=== PATIENT | female | born 1980 | race Caucasian/White ===

== ENCOUNTER → 2019-01-04 15:56 | Outpatient (CLI) | payer OTHER, SELFPAY ==
--- NOTE | 2019-01-04 15:59 | DI.RAD.S_ITS ---
PROCEDURE: XR FOOT LT MIN 3V INDICATIONS: Left pinky toe injury TECHNIQUE: 3 views of the foot were acquired. COMPARISON: None. FINDINGS: Bones: Cortical irregularity along the medial aspect of the diaphysis of the left fifth middle phalanx. No suspicious bony lesions. There is a 0.5 cm rounded enostosis of the proximal diaphysis of the fifth metatarsal. Soft tissues: No tibiotalar joint effusion. IMPRESSION: Cortical irregularity of the left fifth middle phalanx, which may represent a nondisplaced fracture in the appropriate clinical setting versus a developmental variant. Correlation with point tenderness recommended to exclude acute fracture. Consider followup radiographs in 7-10 days if there is continued clinical concern. Dictated by: Aakash Warner M.D. on 01/04/2019 at 17:04 Approved by: Aakash Warner M.D. on 01/04/2019 at 17:08
== END ==
PROVIDERS: Visit Provider Physician Assistant
DX: M79.675 Pain in left toe(s) (principal); S99.922A Unspecified injury of left foot, initial encounter; X58.XXXA Exposure to other specified factors, initial encounter
CPT/HCPCS: 73630

== ENCOUNTER → 2019-07-16 06:55 | Outpatient (CLI) | payer OTHER, SELFPAY ==
[2019-07-16 08:10] LABS: Add Manual Diff / Slide Review NO; Basophils Absolute Auto 0 /uL (0-100); Basophils Percent Auto 0.9 % (0-2); Eosinophils Absolute Auto 200 /uL (0-450); Eosinophils Percent Auto 3.9 % (2-4); Hematocrit 38.3 % (36-46); Hemoglobin 12.8 g/dL (12.0-16.0); Lymphocytes Absolute Auto 2300 /uL (1100-4500); Lymphocytes Percent Auto 41.7 % (25-40); Mean Corpuscular HGB Conc 33.5 % (30-36); Mean Corpuscular Hemoglobin 31.2 PG (26-34); Mean Corpuscular Volume 93.3 fL (80-100); Monocytes Absolute Auto 500 /uL (0-900); Monocytes Percent Auto 9.6 % (3-14); Neutrophils Absolute Auto 2400 /uL (1500-7000); Neutrophils Percent Auto 43.9 % (50-75); Platelet Count 258 X10^3/uL (150-400); Red Blood Cell Count 4.11 X10^6/uL (4.0-5.2); Red Cell Distribution Width 13.5 % (11.6-14.8); White Blood Cell Count 5.6 X10^3/uL (4.5-11.0)
[2019-07-16 08:20] LABS: Alanine Aminotransferase 12 IU/L (9-52); Albumin 4.3 g/dL (3.5-5.0); Albumin Globulin Ratio 1.4 (1.0-2.8); Alkaline Phosphatase 35 U/L (38-126); Aspartate Aminotransferase 22 IU/L (14-36); BUN Creatinine Ratio 16.3 (6-22); Bilirubin Total 0.6 mg/dL (0.2-1.3); Blood Urea Nitrogen 13 mg/dL (7-17); Calcium 9.2 mg/dL (8.4-10.2); Carbon Dioxide 29 mmol/L (22-32); Chloride 104 mmol/L (98-107); Cholesterol 185 mg/dL (140-199); Estimated Glomerular Filt Rate > 60.0 mL/min (>60); Globulin 3.1 g/dL (1.7-4.1); Glucose 94 mg/dL (70-100); HDL Cholesterol 66 mg/dL (40-60); HEMOLYSIS < 15 (0-50); LDL Cholesterol Calculated 108 mg/dL (<100); Potassium 3.7 mmol/L (3.4-5.1); Sodium 138 mmol/L (137-145); Total Protein 7.4 g/dL (6.3-8.2); Triglycerides 55 mg/dL (35-150)
[2019-07-16 09:02] LABS: Thyroid Stimulating Hormone 1.81 uIU/mL (0.47-4.68)
[2019-07-16 09:07] LABS: Appearance Urine UA CLEAR; Bilirubin Urine UA NEGATIVE (NEGATIVE); Color Urine UA YELLOW; Glucose Urine UA NEGATIVE (Negative); Ketones Urine UA NEGATIVE (NEGATIVE); Leukocyte Esterase Urine UA NEGATIVE (NEGATIVE); Nitrite Urine UA NEGATIVE (Negative); Occult Blood Urine UA NEGATIVE (Negative); Protein Urine UA NEGATIVE (Negative); Specific Gravity Urine UA <=1.005 (1.000-1.035); Urobilinogen Urine UA 0.2 E.U./dL (0.2)
== END ==
PROVIDERS: PCP Family Medicine; Visit Provider Family Medicine
DX: Z00.00 Encounter for general adult medical examination without abnormal findings (principal)
CPT/HCPCS: 36415; 80053; 80061; 81003; 84443; 85025

== ENCOUNTER → 2019-07-29 13:22 | Outpatient (CLI) | payer OTHER, SELFPAY ==
--- NOTE | 2019-07-29 13:24 | DI.RAD.S_ITS ---
PROCEDURE: XR SHOULDER LT MIN 2V INDICATIONS: pain, dec ROM, r/o AC separation TECHNIQUE: 3 views of the shoulder were acquired. COMPARISON: None. FINDINGS: Bones: No fractures or dislocations. No suspicious bony lesions. Visualized ribs appear intact. Soft tissues: No suspicious soft tissue calcifications. IMPRESSION: AC joint interval is normal. There is mild soft tissue swelling superior to the AC joint. MRI of the left shoulder could be considered for ligamentous injury. Dictated by: Dain Chiu M.D. on 07/29/2019 at 13:41 Approved by: Dain Chiu M.D. on 07/29/2019 at 13:44
== END ==
PROVIDERS: PCP Family Medicine; Visit Provider Physician Assistant
DX: S49.92XA Unspecified injury of left shoulder and upper arm, initial encounter (principal); M25.512 Pain in left shoulder; M79.89 Other specified soft tissue disorders; X58.XXXA Exposure to other specified factors, initial encounter
CPT/HCPCS: 73030

== ENCOUNTER → 2019-08-25 07:41 | Outpatient (CLI) | payer OTHER, SELFPAY ==
--- NOTE | 2019-08-25 07:43 | DI.MRI.S_ITS ---
PROCEDURE: MR SHOULDER LT WO CON INDICATIONS: Left shoulder pain with decreased range of motion post pulling injury TECHNIQUE: Noncontrast oblique coronal T2 fast spin echo with fat saturation, oblique sagittal T1 spin echo and T2 fast spin echo with fat saturation, axial T1 spin echo and T2 fast spin echo with fat saturation through the shoulder. COMPARISON: [facility], CR, XR SHOULDER LT MIN 2V, 07/29/2019, 13:20. FINDINGS: Image quality: Excellent. Rotator cuff: Mild supraspinatus tendinopathy otherwise the infraspinatus, teres minor and subscapular tendons appear intact. No atrophy of the rotator cuff muscles. Bones and bursae: No fracture identified. There is prominent marrow edema at the acromioclavicular joint however no definite malalignment. The superior and inferior acromioclavicular ligaments appear grossly intact although possibly thickened with T2 hyperintensity, suggestive of sprain and/or marrow contusion (versus reactive marrow edema). The coracoclavicular ligament appears intact Acromion demonstrates conventional anatomy, without an os acromiale. No subacromial-subdeltoid bursitis. Capsule and soft tissues: Labrum intact. Long head of the biceps tendon intact. The rotator interval appears normal, without fibrosis. Coracohumeral ligament intact. IMPRESSION: Marrow edema and articular soft tissue signal changes at the AC joint suggestive of ligamentous sprain and/or associated marrow contusion versus reactive marrow edema. However, no definite malalignment is seen. If clinically warranted, continued evaluation with acromioclavicular joint radiographs with and without weights could be performed. Mild supraspinatus tendinopathy Approved by: Tawanda Rivero M.D. on 08/25/2019 at 14:46
== END ==
PROVIDERS: PCP Family Medicine; Visit Provider Physician Assistant
DX: S49.92XA Unspecified injury of left shoulder and upper arm, initial encounter (principal); X50.9XXA Other and unspecified overexertion or strenuous movements or postures, initial encounter; M67.912 Unspecified disorder of synovium and tendon, left shoulder
CPT/HCPCS: 73221

== ENCOUNTER → 2019-12-18 08:36 | Outpatient (CLI) | payer OTHER, SELFPAY ==
--- NOTE | 2019-12-18 08:37 | DI.US.S_ITS ---
LIMITED ULTRASOUND OF RIGHT BREAST: 12/18/2019 CLINICAL: Palpable right breast lump by physician. Comparison is made to exam dated: 12/18/2019 [facility]. Color flow and real-time ultrasound of the right breast outer aspect were performed on the areas of interest. No discrete cystic or solid mass lesion identified in the area of palpable abnormality laterally or in the posterior upper inner quadrant of the right breast to correlate with the mammographic finding. Small simple cysts are noted at 11:00 and 2:30 positions. IMPRESSION: NEGATIVE There is no sonographic evidence of malignancy. There is no abnormality seen in the right breast to correspond with the palpable abnormality in the outer aspect, however, clinical followup is recommended. There is no abnormality seen in the right breast to correspond with the mammography finding in the upper inner quadrant. Small simple cysts noted on ultrasound in the right breast at 11:00 and 2:30 positions appear benign. A 1 year screening mammogram is recommended. This exam was interpreted at Station ID: [id number]. Electronically Signed By: Jad rangel/:12/18/2019 10:19:18 letter sent: Clinical Evaluation Ultrasound BI-RADS: 1 Negative
--- NOTE | 2019-12-18 08:37 | DI.US.S_ITS ---
LIMITED ULTRASOUND OF LEFT BREAST: 12/18/2019 CLINICAL: Palpable left breast lump by physician. Comparison is made to exam dated: 12/18/2019 [facility]. Real-time ultrasound of the left breast outer aspect was performed on the area of interest. IMPRESSION: NEGATIVE There is no sonographic evidence of malignancy. There is no abnormality seen in the left breast to correspond with the palpable abnormality in the outer aspect, however, clinical followup is recommended. A 1 year screening mammogram is recommended. This exam was interpreted at Station ID: [id number]. Electronically Signed By: Jad rangel/grover:12/18/2019 10:13:57 letter sent: Clinical Evaluation Ultrasound BI-RADS: 1 Negative
--- NOTE | 2019-12-18 08:37 | DI.MG.S_ITS ---
BILATERAL DIGITAL DIAGNOSTIC MAMMOGRAM 3D/2D: 12/18/2019 CLINICAL: Bilateral breast lumps. Baseline. No prior exams were available for comparison. The tissue of both breasts is heterogeneously dense. This may lower the sensitivity of mammography. There is an oval equal density asymmetry with an indistinct margin in the right breast at 1 o'clock posterior depth. No other significant masses, calcifications, or other findings are seen in either breast. IMPRESSION: INCOMPLETE: NEEDS ADDITIONAL IMAGING EVALUATION The oval equal density asymmetry in the right breast is indeterminate. An ultrasound is recommended. There is no abnormality seen in either breast to correspond with the palpable abnormality in the outer aspect, however, ultrasound is recommended. This exam was interpreted at Station ID: [id number]. NOTE: For mammograms, a report in lay terms will be sent to the patient. Approximately 15% of breast malignancies will not be visualized mammographically. In the management of a palpable breast mass, a negative mammogram must not discourage biopsy of a clinically suspicious lesion. Electronically Signed By: Jad rangel/grover:12/18/2019 09:35:55 ACR BI-RADS Category 0: Incomplete [id number]
== END ==
PROVIDERS: PCP Family Medicine; Referring Provider Obstetrics & Gynecology; Visit Provider Obstetrics & Gynecology
DX: R92.8 Other abnormal and inconclusive findings on diagnostic imaging of breast (principal); N60.01 Solitary cyst of right breast; N63.20 Unspecified lump in the left breast, unspecified quadrant
CPT/HCPCS: 76642; 77066; G0279

== ENCOUNTER 2020-06-02 10:39 | Emergency (ER) | payer OTHER, SELFPAY ==
[2020-06-02 10:45] VITALS: BP 123/81; PULSE 80; RESP 16; TEMP 36.6; O2SAT 100; BMI 20.3
--- NOTE | 2020-06-02 11:13 | DI.CT.S_ITS ---
PROCEDURE: CT FACIAL BONES WO CON INDICATIONS: L orbital trauma TECHNIQUE: Noncontrast 2.5 mm thick axial images acquired from the mandible through the frontal sinuses, with coronal and sagittal reformatting. For radiation dose reduction, the following was used: automated exposure control, adjustment of mA and/or kV according to patient size. COMPARISON: None. FINDINGS: Image quality: Excellent. Bones and teeth: Orbital cronin are intact. Sinus cronin show no fracture or deformity. Nasal bones and septum are intact. Visualized portions of the mandible demonstrate no fractures or subluxation. Zygomatic arches are intact. Pterygoid plates are intact. Visualized portions of the skull base and auditory canals are intact. Sinuses: Paranasal sinuses demonstrate minimal scattered mucosal thickening in the frontal, sphenoid, ethmoid and maxillary sinuses. Small mucous retention cyst versus polyp is present in the left maxillary sinus. Soft tissues: No edema, masses, or fluid collections. No enlarged lymph nodes. No soft tissue lacerations or debris. Vascular: Visualized vascular structures appear normal in the absence of contrast. Bony vascular foramina and canals are intact. IMPRESSION: No visualized fracture. Dictated by: Tammy Ron M.D. on 06/02/2020 at 11:36 Approved by: Tammy Ron M.D. on 06/02/2020 at 11:42
[2020-06-02] MEDS: IBUPROFEN 400 MG TABLET PO (11:48)
[2020-06-02] MEDS: ONDANSETRON 4 MG ODT SL (11:48)
--- NOTE | 2020-06-02 12:02 | ED_ITS ---
HPI - Head Injury <FRENCH Brandon - Last Filed: 06/02/20 14:03> General Chief complaint: Head Injury Stated complaint: hit in head Time Seen by Provider: 06/02/20 10:58 Source: patient Mode of arrival: Ambulatory Limitations: no limitations History of Present Illness HPI Narrative: 39yo female presents to the emergency department complaining of left-sided head trauma. 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 Patient states she felt dizzy but denies any syncope, loss of consciousness, vomiting, or other injuries. Patient states she has a lump to the left side of the head, she reports having a mild dull aching headache 6/10 pain, and nausea. Patient denies taking any blood thinners. She denies any major medical issues. Patient denies any other symptoms such as fevers, chest pain, shortness of breath, trauma to the limbs, diarrhea, or abdominal pain. Related Data Previous Rx's Medication Instructions Recorded ondansetron 4 mg PO Q6H PRN #10 tab 06/02/20 Allergies Allergy/AdvReac Type Severity Reaction Status Date / Time oyster extract Allergy Unknown Verified 06/02/20 10:49 [OYSTER EXTRACT] peanut [PEANUT] Allergy Unknown Verified 06/02/20 10:49 tuna Allergy Unknown Uncoded 12/01/19 15:08 Review of Systems <FRENCH Brandon - Last Filed: 06/02/20 14:03> Review of Systems Narrative: REVIEW OF SYSTEMS: GENERAL: Denies fever or chills. HENT: Reports head trauma, see HPI. EYES: No loss of vision, double vision, eye pain, or irritation. CARDIOVASCULAR: No chest pain. RESPIRATORY: No cough. GASTROINTESTINAL: Reports nausea, see HPI. MUSCULOSKELETAL: No pain or deformities. INTEGUMENTARY: No rash. NEURO: No numbness, tingling, a memory loss. Patient History <FRENCH Brandon - Last Filed: 06/02/20 14:03> Medical History Allergies (Chronic ~1979) Ankle pain (Chronic ~2018) Asthma (Chronic ~1984) Chicken pox (Resolved ~1987) Eczema (Chronic ~1979) Fractures (Resolved ~2000) Headache (Inactive ~1987) Migraines (Inactive ~1995) Painful menstrual periods (Chronic ~1997) Family History Father Cancer Grandfather Dementia Grandmother Stroke Grandfather History of heart disease Congestive heart failure Social History Smoking Status: Current every day smoker Smoking Status: Current every day smoker alcohol intake frequency: a few times a week Substance Use Type: does not use Exam <FRENCH Brandon - Last Filed: 06/02/20 14:03> Initial Vital Signs Initial Vital Signs: Vital Signs Temperature 97.8 F 06/02/20 10:45 Pulse Rate 80 06/02/20 10:45 Respiratory Rate 16 06/02/20 10:45 Blood Pressure 123/81 06/02/20 10:45 Pulse Oximetry 100 06/02/20 10:45 PHYSICAL EXAMINATION: GENERAL: Well groomed, alert, and cooperative. Answers questions promptly and appropriately. Vital signs noted. HENT: Normocephalic, a 3 cm lump noted to left lateral orbital region with tenderness during palpation, small amount of periorbital ecchymosis noted to medial aspect of lower left eye. EYES: PERRLA, EOMIs, conjunctiva pink, sclera white, no periorbital swelling. CHEST: Normal to inspection and without deformities. CARDIOVASCULAR: S1 and S2 sounds normal. Regular rate and rhythm, no murmurs, clicks, or bruits. RESPIRATORY: Normal respiratory rate, trachea midline, airway patent. No stridor, nasal flaring or accessory muscle use. Lungs are clear in all hawkins without wheeze, rhonchi, or crackles. MUSCULOSKELETAL: Normal gait and coordination. Equal tone and mass bilaterally. EXTREMITIES: CMS intact. Moves all extremities. SKIN: Warm, dry, soft, appropriate color for ethnicity. No lesions, rashes, or wounds. NEURO: Alert and Oriented X 3. Good coordination. No ataxia, or sensory deficits, or cognitive issues. Cranial Nerves: II: Visual hawkins grossly intact. III & IV & : EOMIs V: Able to open and close jaw. VII: Facial movements symetrical. Able to close eyelids tightly. VIII: Hearing grossly intact, adequate balance. X: Uvula pronation intact. XI: Patient is able to shrug shoulders. XII: Patient is able to stick out tongue and move it side to side. PSYCH: Appropriate affect and mood. <Cash Dowell MD - Last Filed: 06/02/20 18:01> Initial Vital Signs Initial Vital Signs: Vital Signs Temperature 97.8 F 06/02/20 10:45 Pulse Rate 80 06/02/20 10:45 Respiratory Rate 16 06/02/20 10:45 Blood Pressure 123/81 06/02/20 10:45 Pulse Oximetry 100 06/02/20 10:45 Scores <FRENCH Brandon - Last Filed: 06/02/20 14:03> Nexus Score for C-Spine Focal Neurologic deficit present: No Midline spinal tenderness present: No Altered level of conciousness present: No Intoxication present: No Distracting Injury Present: No Nexus Criteria for C-spine: 0 Course <FRENCH Brandon - Last Filed: 06/02/20 14:03> Course Course Narrative: Patient was given ibuprofen and ondansetron in the clinic to help with symptoms. CT facial bones ordered given notable trauma and ecchymosis to left orbital to evaluate for fractures. Orders Ordered: ED Orders 06/02/20 11:13 CT facial bones wo con Stat Discontinued Medications Ibuprofen (Advil) 400 mg PO NOW ONE Stop: 06/02/20 11:14 Last Admin: 06/02/20 11:48 Dose: 400 mg Documented by: OTTO Ondansetron HCl (Zofran Odt) 4 mg SL NOW ONE Stop: 06/02/20 11:14 Last Admin: 06/02/20 11:54 Dose: Not Given Documented by: OTTO Reevaluation(s) Reevaluation #1: Patient reports decreased symptoms after medication administration. Vital Signs Vital signs: Vital Signs - 8 hr 06/02/20 10:45 06/02/20 12:14 Temperature 97.8 F Pulse Rate 80 70 Respiratory Rate 16 Blood Pressure 123/81 114/74 Pulse Oximetry 100 99 <Cash Dowell MD - Last Filed: 06/02/20 18:01> Orders Ordered: ED Orders 06/02/20 11:13 CT facial bones wo con Stat Discontinued Medications Ibuprofen (Advil) 400 mg PO NOW ONE Stop: 06/02/20 11:14 Last Admin: 06/02/20 11:48 Dose: 400 mg Documented by: OTTO Ondansetron HCl (Zofran Odt) 4 mg SL NOW ONE Stop: 06/02/20 11:14 Last Admin: 06/02/20 11:54 Dose: Not Given Documented by: OTTO Vital Signs Vital signs: Vital Signs - 8 hr 06/02/20 10:45 06/02/20 12:14 Temperature 97.8 F Pulse Rate 80 70 Respiratory Rate 16 Blood Pressure 123/81 114/74 Pulse Oximetry 100 99 MDM - Head Injury <FRENCH Brandon - Last Filed: 06/02/20 14:03> Medical Records Attestation: I reviewed the patient's medical records. Lab Data Attestation: I reviewed the patient's lab results. Imaging Data CT Face: Radiologist's Impression: [address] [address] [address] Scan Report Signed Patient: Loyda Miranda [facility]#: [id number] : 1980Acct:[id number] Age/Sex: 39 / FDate of Service: 06/02/20 Loc: ED Accession Number: [id number] Procedure: CT facial bones wo con Ordering Provider: Lamar Reyes PROCEDURE: CT FACIAL BONES WO CON INDICATIONS: L orbital trauma TECHNIQUE: Noncontrast 2.5 mm thick axial images acquired from the mandible through the frontal sinuses, with coronal and sagittal reformatting. For radiation dose reduction, the following was used: automated exposure control, adjustment of mA and/or kV according to patient size. COMPARISON: None. FINDINGS: Image quality: Excellent. Bones and teeth: Orbital cronin are intact. Sinus cronin show no fracture or deformity. Nasal bones and septum are intact. Visualized portions of the mandible demonstrate no fractures or subluxation. Zygomatic arches are intact. Pterygoid plates are intact. Visualized portions of the skull base and auditory canals are intact. Sinuses: Paranasal sinuses demonstrate minimal scattered mucosal thickening in the frontal, sphenoid, ethmoid and maxillary sinuses. Small mucous retention cyst versus polyp is present in the left maxillary sinus. Soft tissues: No edema, masses, or fluid collections. No enlarged lymph nodes. No soft tissue lacerations or debris. Vascular: Visualized vascular structures appear normal in the absence of contrast. Bony vascular foramina and canals are intact. IMPRESSION: No visualized fracture. Dictated by: Tammy Ron M.D. on 06/02/2020 at 11:36 Approved by: Tammy Ron M.D. on 06/02/2020 at 11:42 MDM Narrative Medical decision making narrative: History and examination concerning for close head injury. Due to significant trauma and lump to left-sided orbital, CT face was ordered to assess for fractures. No CT head indicated at this time given lack of concerning symptoms such as vomiting or syncope, patient's neuro exam was intact. Nexus score of 0. Patient reported symptoms decreased after administration of medication. Patient was given ondansetron prescription encouraged to take Tylenol and ibuprofen for some. I suspect she has a mild concussion given head trauma and symptoms. Return precautions given for new or worsening symptoms. 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 Patient agreed to plan of care verbalized understanding Discharge Plan Departure Patient Disposition: Home Clinical Impression: Postconcussion syndrome Head injury Qualifiers: Encounter type: initial encounter Qualified Code(s): S09.90XA - Unspecified injury of head, initial encounter Concussion Qualifiers: Encounter type: initial encounter Loss of consciousness presence/duration: without LOC Qualified Code(s): S06.0X0A - Concussion without loss of consciousness, initial encounter Discharge Date/Time: 06/02/20 12:14 Instructions: Concussion Activity Restrictions/Additional Instructions: Thank you for entrusting me with your care today. As discussed, your CT was negative for any fractures. It appears you have a concussion, please rest over the next few days. Concussion symptoms can last a few weeks. Decreased activities that make your symptoms worse such as prolonged screen time or intense physical activity. I recommend taking Tylenol or ibuprofen to help headaches, I prescribed you ondansetron to help with nausea. Your prescriptions were sent to [facility]. Use ice to the area to help with swelling. Return emergency department for any new or worsening symptoms such as vomiting, passing out, double vision, vision loss, or any other concerns. Please follow-up with your primary care provider in 1-2 weeks for further evaluation if you are still having symptoms. Prescriptions: New ondansetron 4 mg tablet,disintegrating 4 mg PO Q6H PRN (Reason: nausea and vomiting) Qty: 10 RF: 0 Referrals: Alma Cabrera ND [Primary Care Provider] - Stand Alone Forms: Work Release Note <Cash Dowell MD - Last Filed: 06/02/20 18:01> Cosign ED Attending Anyaature Attestation: I was immediately available in the department for consultation. This documentation has been reviewed and I agree with assessment and plan. Supervised by Cash Dowell MD
[2020-06-02 12:14] VITALS: BP 114/74; PULSE 70; O2SAT 99
== END 2020-06-02 12:14 | disposition home or self-care (01) ==
PROVIDERS: Emergency Provider Nurse Practitioner; PCP Naturopath
DX: S06.0X0A Concussion without loss of consciousness, initial encounter (principal); W18.09XA Striking against other object with subsequent fall, initial encounter; R11.0 Nausea; Y99.0 Civilian activity done for income or pay
CPT/HCPCS: 70486; 99283; 99284

== ENCOUNTER → 2020-09-24 08:49 | Outpatient (CLI) | payer OTHER, SELFPAY ==
[2020-09-24 09:20] LABS: COVID19 -Nasal RAPID Negative (Negative)
== END ==
PROVIDERS: PCP Naturopath; Visit Provider Nurse Practitioner
DX: Z20.828 Contact with and (suspected) exposure to other viral communicable diseases (principal); R05 Cough; R51.9 Headache, unspecified
CPT/HCPCS: 87635

== ENCOUNTER → 2020-10-06 10:52 | Outpatient (CLI) | payer OTHER, SELFPAY ==
--- NOTE | 2020-10-06 10:56 | DI.RAD.S_ITS ---
PROCEDURE: XR FINGER RT MIN 2V INDICATIONS: r finger pain TECHNIQUE: AP hand, 2 views of the thumb acquired. COMPARISON: None. FINDINGS: Bones: Displaced, mildly comminuted distal tuft fracture of distal phalanx of thumb. No dislocation.. No suspicious bony lesions. Soft tissues: No suspicious soft tissue calcifications. IMPRESSION: Displaced, mildly comminuted distal tuft fracture of distal phalanx of thumb. Dictated by: Xavier Hartmann M.D. on 10/06/2020 at 11:26 Approved by: Xavier Hartmann M.D. on 10/06/2020 at 11:27
== END ==
PROVIDERS: PCP Naturopath; Referring Provider Physician Assistant; Visit Provider Physician Assistant
DX: M79.644 Pain in right finger(s) (principal); S62.521A Displaced fracture of distal phalanx of right thumb, initial encounter for closed fracture; X58.XXXA Exposure to other specified factors, initial encounter
CPT/HCPCS: 73140

== ENCOUNTER → 2020-12-22 16:44 | Outpatient (CLI) | payer OTHER, SELFPAY ==
--- NOTE | 2020-12-22 | DI.MG.S_ITS ---
BILATERAL DIGITAL SCREENING MAMMOGRAM 3D/2D WITH CAD: 12/22/2020 CLINICAL: Routine screening. Comparison is made to exam dated: 12/18/2019 [facility]. The tissue of both breasts is heterogeneously dense. This may lower the sensitivity of mammography. Current study was also evaluated with a Computer Aided Detection (CAD) system. There are grouped fine calcifications in the left breast anterior depth central to the nipple seen on the craniocaudal view only. No other significant masses, calcifications, or other findings are seen in either breast. IMPRESSION: INCOMPLETE: NEEDS ADDITIONAL IMAGING EVALUATION The grouped fine calcifications in the left breast are indeterminate. Mediolateral and spot magnification views are recommended. This exam was interpreted at Station ID: [id number]. NOTE: For mammograms, a report in lay terms will be sent to the patient. Approximately 15% of breast malignancies will not be visualized mammographically. In the management of a palpable breast mass, a negative mammogram must not discourage biopsy of a clinically suspicious lesion. Electronically Signed By: Sarthak Umana acr/:12/22/2020 17:21:20 letter sent: Additional Imaging Needed ACR BI-RADS Category 0: Incomplete [id number]
== END ==
PROVIDERS: PCP Naturopath; Referring Provider Naturopath; Visit Provider Naturopath
DX: Z12.31 Encounter for screening mammogram for malignant neoplasm of breast (principal)
CPT/HCPCS: 77063; 77067

== ENCOUNTER → 2021-01-31 14:45 | Outpatient (CLI) | payer OTHER, SELFPAY ==
--- NOTE | 2021-01-31 | DI.MG.S_ITS ---
UNILATERAL LEFT DIGITAL DIAGNOSTIC MAMMOGRAM 3D/2D WITH ADDITIONAL VIEWS: 01/31/2021 CLINICAL: Additional evaluation requested from prior study. Comparison is made to exams dated: 12/22/2020 mammogram and 12/18/2019 mammogram - [facility]. The tissue of left breast is heterogeneously dense. This may lower the sensitivity of mammography. Ther grouped fine calcifications in the left breast sub-areolar depth central to the nipple seen on the craniocaudal view only are not seen on additional views. Findings likely reflected artifact. No other significant masses or calcifications are seen in the breast. IMPRESSION: BENIGN There is no mammographic evidence of malignancy. A 1 year screening mammogram is recommended. This exam was interpreted at Station ID: [id number]. NOTE: For mammograms, a report in lay terms will be sent to the patient. Approximately 15% of breast malignancies will not be visualized mammographically. In the management of a palpable breast mass, a negative mammogram must not discourage biopsy of a clinically suspicious lesion. Electronically Signed By: Jad rangel/:01/31/2021 15:29:52 copy to: Manuela Valencia letter sent: Normal Exam ACR BI-RADS Category 2: Benign Finding(s) 3342F
== END ==
PROVIDERS: PCP Naturopath; Referring Provider Naturopath; Visit Provider Naturopath
DX: R92.8 Other abnormal and inconclusive findings on diagnostic imaging of breast (principal)
CPT/HCPCS: 77065; G0279

== ENCOUNTER → 2021-03-24 07:31 | Outpatient (CLI) | payer OTHER, SELFPAY ==
[2021-03-24 08:07] LABS: Add Manual Diff / Slide Review NO; Basophils Absolute Auto 100 /uL (0-100); Basophils Percent Auto 1.1 % (0-2); Eosinophils Absolute Auto 200 /uL (0-450); Eosinophils Percent Auto 3.7 % (2-4); Hematocrit 36.6 % (36-46); Hemoglobin 12.4 g/dL (12.0-16.0); Lymphocytes Absolute Auto 2000 /uL (1100-4500); Lymphocytes Percent Auto 43.8 % (25-40); Mean Corpuscular HGB Conc 33.8 % (30-36); Mean Corpuscular Hemoglobin 31.1 PG (26-34); Monocytes Absolute Auto 500 /uL (0-900); Monocytes Percent Auto 9.7 % (3-14); Neutrophils Absolute Auto 2000 /uL (1500-7000); Neutrophils Percent Auto 41.7 % (50-75); Platelet Count 234 X10^3/uL (150-400); Red Blood Cell Count 3.97 X10^6/uL (4.0-5.2); Red Cell Distribution Width 13.7 % (11.6-14.8); White Blood Cell Count 4.7 X10^3/uL (4.5-11.0)
[2021-03-24 08:56] LABS: Alanine Aminotransferase 12 IU/L (<35); Albumin 3.8 g/dL (3.5-5.0); Albumin Globulin Ratio 1.4 (1.0-2.8); Alkaline Phosphatase 42 U/L (38-126); Aspartate Aminotransferase 21 IU/L (14-36); Bilirubin Total 0.5 mg/dL (0.2-1.3); Blood Urea Nitrogen 16 mg/dL (7-17); Calcium 9.3 mg/dL (8.4-10.2); Carbon Dioxide 26 mmol/L (22-32); Chloride 108 mmol/L (98-107); Cholesterol 171 mg/dL (140-199); Estimated Glomerular Filt Rate > 60.0 mL/min (>60); Globulin 2.7 g/dL (1.7-4.1); Glucose 87 mg/dL (70-100); HDL Cholesterol 79 mg/dL (40-60); HEMOLYSIS < 15 (0-50); LDL Cholesterol Calculated 85 mg/dL (<100); Potassium 4.3 mmol/L (3.4-5.1); Sodium 138 mmol/L (137-145); Total Protein 6.5 g/dL (6.3-8.2); Triglycerides 37 mg/dL (35-150)
== END ==
PROVIDERS: PCP Naturopath; Referring Provider Naturopath; Visit Provider Naturopath
DX: Z00.00 Encounter for general adult medical examination without abnormal findings (principal)
CPT/HCPCS: 36415; 80053; 80061; 85025

== ENCOUNTER → 2021-05-02 08:09 | Outpatient (CLI) | payer OTHER, SELFPAY ==
[2021-05-02 09:06] LABS: COVID19 -Nasal RAPID Negative (Negative)
== END ==
PROVIDERS: Referring Provider Physician Assistant; Visit Provider Physician Assistant
DX: Z20.822 Contact with and (suspected) exposure to COVID-19 (principal)
CPT/HCPCS: 87635

== ENCOUNTER → 2021-08-22 17:44 | Outpatient (ROUT) | payer OTHER, SELFPAY ==
[2021-08-22 17:48] LABS: Appearance Urine UA CLEAR; Bilirubin Urine UA NEGATIVE (NEGATIVE); Color Urine UA YELLOW; Glucose Urine UA NEGATIVE (Negative); Ketones Urine UA NEGATIVE (NEGATIVE); Leukocyte Esterase Urine UA NEGATIVE (NEGATIVE); Nitrite Urine UA NEGATIVE (Negative); Occult Blood Urine UA NEGATIVE (Negative); Protein Urine UA NEGATIVE (Negative); Specific Gravity Urine UA 1.015 (1.000-1.035); Urobilinogen Urine UA 0.2 E.U./dL (0.2)
[2021-08-22 17:58] LABS: Amorphous Sediment Urine 1+; Bacteria Urine None Seen; Culture Indicated Urine Cult Not Indicated; RBC Urine 0-1/HPF (0-5/HPF); Squamous Epithelial Cell Urine 1-5 /HPF (0-5/HPF); WBC Urine 0-1/HPF (0-5/HPF)
== END ==
PROVIDERS: Visit Provider Naturopath
DX: N30.90 Cystitis, unspecified without hematuria (principal)
CPT/HCPCS: 81001

== ENCOUNTER → 2022-05-16 14:02 | Outpatient (CLI) | payer OTHER, SELFPAY ==
[2022-05-16 14:35] LABS: COVID19 -Nasal RAPID Negative (Negative)
== END ==
PROVIDERS: Visit Provider Nurse Practitioner Critical Care Medicine
DX: Z20.822 Contact with and (suspected) exposure to COVID-19 (principal); J02.9 Acute pharyngitis, unspecified
CPT/HCPCS: 87070; 87635

== ENCOUNTER → 2023-02-22 07:04 | Outpatient (CLI) | payer OTHER, SELFPAY ==
[2023-02-22 08:05] LABS: Add Manual Diff / Slide Review NO; Basophils Absolute Auto 0 /uL (0-100); Basophils Percent Auto 0.9 % (0-2); Eosinophils Absolute Auto 100 /uL (0-450); Eosinophils Percent Auto 2.2 % (2-4); Hematocrit 35.9 % (36-46); Hemoglobin 12.1 g/dL (12.0-16.0); Lymphocytes Absolute Auto 2000 /uL (1100-4500); Lymphocytes Percent Auto 38.4 % (25-40); Mean Corpuscular HGB Conc 33.7 % (30-36); Mean Corpuscular Hemoglobin 30.6 PG (26-34); Mean Corpuscular Volume 90.8 fL (80-100); Monocytes Absolute Auto 400 /uL (0-900); Monocytes Percent Auto 7.2 % (3-14); Neutrophils Absolute Auto 2700 /uL (1500-7000); Neutrophils Percent Auto 51.3 % (50-75); Platelet Count 232 X10^3/uL (150-400); Red Blood Cell Count 3.96 X10^6/uL (4.0-5.2); Red Cell Distribution Width 13.3 % (11.6-14.8); White Blood Cell Count 5.3 X10^3/uL (4.5-11.0)
[2023-02-22 09:17] LABS: Alanine Aminotransferase 13 IU/L (<35); Albumin Globulin Ratio 1.5 (1.0-2.8); Alkaline Phosphatase 38 U/L (38-126); Aspartate Aminotransferase 19 IU/L (14-36); BUN Creatinine Ratio 20.2 (6-22); Bilirubin Total 0.5 mg/dL (0.2-1.3); Blood Urea Nitrogen 17 mg/dL (7-17); Carbon Dioxide 27 mmol/L (22-32); Chloride 106 mmol/L (98-107); Cholesterol 172 mg/dL (140-199); Estimated Glomerular Filt Rate > 60 mL/min (>60); Globulin 2.6 g/dL (1.7-4.1); Glucose 85 mg/dL (70-100); HDL Cholesterol 66 mg/dL (40-60); HEMOLYSIS < 15 (0-50); LDL Cholesterol Calculated 95 mg/dL (<100); Potassium 4.1 mmol/L (3.4-5.1); Sodium 137 mmol/L (137-145); Total Protein 6.6 g/dL (6.3-8.2); Triglycerides 53 mg/dL (35-150)
[2023-02-22 09:53] LABS: Ferritin 37 ng/mL (6-137)
== END ==
PROVIDERS: PCP Naturopath; Referring Provider Naturopath; Visit Provider Naturopath
DX: Z00.00 Encounter for general adult medical examination without abnormal findings (principal); R71.8 Other abnormality of red blood cells
CPT/HCPCS: 36415; 80053; 80061; 82728; 85025

== ENCOUNTER → 2023-04-17 14:33 | Outpatient (CLI) | payer OTHER, SELFPAY ==
--- NOTE | 2023-04-17 14:35 | DI.RAD.S_ITS ---
PROCEDURE: XR HAND RT MIN 3V INDICATIONS: L I hand injury base of thumb TECHNIQUE: 3 views of the hand(s) acquired. [facility] FINGER(S[facility] RIGHT, 11/23/2020, 9:19. FINDINGS: Bones: No fractures or dislocations. Carpal bones are normally aligned. No suspicious bony lesions. Healed fracture deformity of the distal phalanx of the right thumb. Soft tissues: No suspicious soft tissue calcifications. IMPRESSION: Right thumb without acute osseous abnormalities. If there is persistent clinical concern for occult fracture given adequate mechanism of injury, consider repeat imaging in 10-14 days. Dictated by: Federico Allen M.D. on 04/17/2023 at 17:25 Approved by: Federico Allen M.D. on 04/17/2023 at 17:27
== END ==
PROVIDERS: PCP Naturopath; Referring Provider Nurse Practitioner Family; Visit Provider Nurse Practitioner Family
DX: S60.221A Contusion of right hand, initial encounter (principal); X58.XXXA Exposure to other specified factors, initial encounter
CPT/HCPCS: 73130

== ENCOUNTER → 2023-05-16 13:56 | Outpatient (CLI) | payer OTHER, SELFPAY ==
[2023-05-16 14:31] LABS: Add Manual Diff / Slide Review NO; Basophils Absolute Auto 100 /uL (0-100); Basophils Percent Auto 0.7 % (0-2); Eosinophils Absolute Auto 100 /uL (0-450); Hemoglobin 11.7 g/dL (12.0-16.0); Lymphocytes Absolute Auto 2200 /uL (1100-4500); Lymphocytes Percent Auto 29.5 % (25-40); Mean Corpuscular HGB Conc 34.5 % (30-36); Mean Corpuscular Hemoglobin 31.2 PG (26-34); Mean Corpuscular Volume 90.5 fL (80-100); Monocytes Absolute Auto 500 /uL (0-900); Monocytes Percent Auto 6.8 % (3-14); Neutrophils Absolute Auto 4500 /uL (1500-7000); Platelet Count 239 X10^3/uL (150-400); Red Blood Cell Count 3.76 X10^6/uL (4.0-5.2); Red Cell Distribution Width 13.6 % (11.6-14.8); White Blood Cell Count 7.3 X10^3/uL (4.5-11.0)
[2023-05-16 15:27] LABS: Ferritin 41 ng/mL (6-137)
== END ==
PROVIDERS: PCP Naturopath; Referring Provider Naturopath; Visit Provider Naturopath
DX: E61.1 Iron deficiency (principal)
CPT/HCPCS: 36415; 82728; 85025

== ENCOUNTER → 2023-08-05 09:19 | Outpatient (CLI) | payer OTHER, SELFPAY ==
[2023-08-05 10:29] LABS: Hemoglobin 12.6 g/dL (12.0-16.0)
[2023-08-05 10:42] LABS: HEMOLYSIS < 15 (0-50); Iron 119 ug/dL (37-170)
[2023-08-05 10:52] LABS: Percent Iron Saturation 57 % (15-50); Total Iron Binding Capacity 210 ug/dL (265-497); Transferrin 151 mg/dL (206-381)
[2023-08-05 11:15] LABS: Ferritin 118 ng/mL (6-137)
== END ==
PROVIDERS: PCP Naturopath; Referring Provider Naturopath; Visit Provider Naturopath
DX: D50.9 Iron deficiency anemia, unspecified (principal)
CPT/HCPCS: 36415; 82728; 83540; 83550; 85014; 85018

== ENCOUNTER → 2023-11-07 12:23 | Outpatient (CLI) | payer OTHER, SELFPAY ==
--- NOTE | 2023-11-07 12:26 | DI.RAD.S_ITS ---
PROCEDURE: XR ELBOW LT MIN 3V INDICATIONS: L I elbow strain TECHNIQUE: 3 views of the elbow were acquired. COMPARISON: None. FINDINGS: Bones: No acute fractures or dislocations. No suspicious bony lesions. Soft tissues: No elbow joint effusion. No suspicious soft tissue calcifications. IMPRESSION: No acute osseous abnormality. If symptoms persist or if there is continued clinical concern, cross-sectional imaging such as MRI or CT may be helpful for further evaluation. Approved by: Sohail Jim M.D. on 11/07/2023 at 16:51
== END ==
LOC: RAD 12:25
PROVIDERS: PCP Naturopath; Referring Provider Nurse Practitioner Family; Visit Provider Nurse Practitioner Family
DX: S46.912A Strain of unspecified muscle, fascia and tendon at shoulder and upper arm level, left arm, initial encounter (principal); X58.XXXA Exposure to other specified factors, initial encounter
CPT/HCPCS: 73080

== ENCOUNTER → 2024-12-07 07:39 | Outpatient (CLI) | payer OTHER, SELFPAY ==
[2024-12-07 08:47] LABS: COVID-19 CEPHEID 4-PLEX PCR Negative (Negative); Influenza A - CEPHEID Flu A NEGATIVE (NEGATIVE); Influenza B - CEPHEID Flu B NEGATIVE (NEGATIVE); Respiratory Syncytial Virus Negative (Negative)
== END ==
PROVIDERS: PCP Naturopath; Visit Provider Nurse Practitioner Family
DX: R05.1 Acute cough (principal)
CPT/HCPCS: 0241U